=== PATIENT | female | born 2000 | race Caucasian/White ===

== ENCOUNTER 2021-01-28 01:12 | Inpatient (IN) | payer MEDICAID, OTHER ==
[~2021-01-28] VITALS: Ht 177.8 cm; Wt 91.8 kg
[2021-01-28] MEDS ORDERED: NEWBORN KIT ONE (13:59)
[2021-01-28] MEDS ORDERED: OXYTOCIN 30U/ 0.9% NaCL 500ML 500 ML ONE (13:59)
[2021-01-28] MEDS ORDERED: TERBUTALINE 1 MG/ML, 1ML SQ PRN (14:00)
[2021-01-28] MEDS ORDERED: CALCIUM CARBONATE 500 MG TAB.CHEW PO PRN ×2 (14:00→17:30)
[2021-01-28] MEDS ORDERED: FENTANYL PF 100 MCG/2ML IVPush PRN (14:00)
[2021-01-28] MEDS ORDERED: FENTANYL PF 100 MCG/2ML IV PRN (14:00)
[2021-01-28] MEDS ORDERED: PHARMACY MAY ADJ FOR RENAL FX MC PRN (14:00)
[2021-01-28] MEDS ORDERED: MISOPROSTOL 25 MCG TABLET VG PRN (14:00)
[2021-01-28] MEDS: LACTATED RINGERS 1,000 ML IV SCH ×3 (14:00→22:00)
[2021-01-28] MEDS ORDERED: METOCLOPRAMIDE 5 MG/ML, 2ML IVPush PRN (14:00)
[2021-01-28] MEDS: D5%-LACTATED RINGERS 1,000 ML IV SCH ×2 (14:00→22:00)
[2021-01-28] MEDS ORDERED: OXYTOCIN 30U/ 0.9% NaCL 500ML 500 ML IV ONE (14:00)
[2021-01-28] MEDS ORDERED: ONDANSETRON 2MG/ML, 2ML IVPush PRN (14:00)
[2021-01-28] MEDS ORDERED: TERBUTALINE 1 MG/ML, 1ML IVPush PRN (14:00)
[2021-01-28] MEDS ORDERED: OXYTOCIN 30U/ 0.9% NaCL 500ML 500 ML IV PRN (14:30)
[2021-01-28 14:31] LABS: BASOPHILS % (AUTO) 0 % (0-1); EOSINOPHILS % (AUTO) 2 % (1-7); LYMPHOCYTES % (AUTO) 17 % (22-44); MEAN CORPUSCULAR HEMOGLOBIN 29.9 pg (27.0-34.8); MEAN CORPUSCULAR HGB CONC 33.6 g/dL (32.4-35.8); MEAN PLATELET VOLUME 9.7 fL (7.4-10.4); MONOCYTES % (AUTO) 8 % (2-9); NEUTROPHILS % (AUTO) 74 % (42-75); PLATELET COUNT 162 x10^3/uL (130-400); RED BLOOD COUNT 3.29 x10^6/uL (3.82-5.3); RED CELL DISTRIBUTION WIDTH 13.7 % (9.6-15.2)
[2021-01-28 14:36] VITALS: BP 131/71
[2021-01-28] MEDS ORDERED: LACTATED RINGERS 1,000 ML IVBOLUS PRN (21:00)
[2021-01-28] MEDS ORDERED: NALOXONE 0.4 MG/ML, 1ML IVPush PRN (21:00)
[2021-01-28] MEDS ORDERED: FENTANYL/BUPIV./NS/PF 250 ML EPIDCONT SCH (21:00)
[2021-01-28] MEDS ORDERED: EPHEDRINE 50 MG/ML, 1ML IVPush PRN (21:00)
[2021-01-28] MEDS ORDERED: BUPIVACAINE 0.25% ONE (21:11)
[2021-01-29 03:45] VITALS: BP 115/70
[2021-01-29] MEDS ORDERED: OXYcodone/APAP 5/325MG TABLET PO PRN (04:00)
[2021-01-29] MEDS: OXYTOCIN 30U/ 0.9% NaCL 500ML 500 ML IV SCH ×2 (04:00→14:00)
[2021-01-29] MEDS ORDERED: ACETAMINOPHEN 325 MG TABLET PO PRN (04:00)
[2021-01-29] MEDS ORDERED: SIMETHICONE 80 MG CHEW TAB PO PRN (04:00)
[2021-01-29] MEDS: LACTATED RINGERS 1,000 ML IV SCH ×5 (05:00→22:00)
[2021-01-29] MEDS: D5%-LACTATED RINGERS 1,000 ML IV SCH ×3 (06:00→22:00)
[2021-01-29] MEDS: DOCUSATE 100 MG CAPSULE PO PRN (07:45)
[2021-01-29] MEDS: IBUPROFEN 600 MG TABLET PO PRN ×2 (07:45→16:54)
[2021-01-29] MEDS: PRENATAL VIT/IRON/FA 1 EACH TABLET PO SCH (07:45)
[2021-01-29 08:40] VITALS: BP 118/64
[2021-01-29] MEDS: OXYcodone/APAP 5/325MG TABLET PO PRN ×3 (09:31→20:59)
[2021-01-29 09:34] LABS: BASOPHILS % (AUTO) 0 % (0-1); EOSINOPHILS % (AUTO) 0 % (1-7); LYMPHOCYTES % (AUTO) 7 % (22-44); MEAN CORPUSCULAR HEMOGLOBIN 29.3 pg (27.0-34.8); MEAN CORPUSCULAR HGB CONC 32.9 g/dL (32.4-35.8); MEAN PLATELET VOLUME 10.5 fL (7.4-10.4); MONOCYTES % (AUTO) 6 % (2-9); NEUTROPHILS % (AUTO) 86 % (42-75); PLATELET COUNT 169 x10^3/uL (130-400); RED BLOOD COUNT 3.61 x10^6/uL (3.82-5.3); RED CELL DISTRIBUTION WIDTH 13.6 % (9.6-15.2)
[2021-01-29 12:30] VITALS: BP 120/75
[2021-01-29 16:25] VITALS: BP 107/56
[2021-01-29 20:25] VITALS: BP 111/65
[2021-01-30] VITALS: BP 105/66
[2021-01-30] MEDS: LACTATED RINGERS 1,000 ML IV SCH (06:00)
[2021-01-30] MEDS: D5%-LACTATED RINGERS 1,000 ML IV SCH (06:00)
[2021-01-30] MEDS: DOCUSATE 100 MG CAPSULE PO PRN (08:07)
[2021-01-30] MEDS: PRENATAL VIT/IRON/FA 1 EACH TABLET PO SCH (08:07)
[2021-01-30] MEDS: IBUPROFEN 600 MG TABLET PO PRN (08:07)
[2021-01-30 08:14] VITALS: BP 113/70
[2021-01-30] MEDS: OXYTOCIN 30U/ 0.9% NaCL 500ML 500 ML IV SCH ×2 (10:00)
== END 2021-01-30 15:35 | disposition home or self-care (01) | DRG 807 ==
LOC: LDIP 13:35 → 2NW 01-29 03:40
PROVIDERS: ADMIT Obstetrics & Gynecology; ATTEND Obstetrics & Gynecology
PROC: 10E0XZZ Delivery of Products of Conception, External Approach (ICD-10-PCS; principal; 2021-01-29)
PROC: 3E0R3BZ Introduction of Anesthetic Agent into Spinal Canal, Percutaneous Approach (ICD-10-PCS; 2021-01-29)
PROC: 00HU33Z Insertion of Infusion Device into Spinal Canal, Percutaneous Approach (ICD-10-PCS; 2021-01-29)
DX: O24.429 Gestational diabetes mellitus in childbirth, unspecified control (principal); Z37.0 Single live birth; Z3A.38 38 weeks gestation of pregnancy; Z20.822 Contact with and (suspected) exposure to COVID-19
CPT/HCPCS: 36415; 82962; 85025; 86592; 86850; 86900; 87635; G0378; J7120